=== PATIENT | female | born 1955 | race Caucasian/White ===

== ENCOUNTER 2019-11-11 06:00 | Emergency (ER) | payer OTHER, MEDICARE ==
[~2019-11-11] VITALS: Ht 172.7 cm; Wt 90.7 kg
[2019-11-11 06:05] VITALS: BP 155/83
--- NOTE | 2019-11-11 06:15 | NUR ---
PT AMBULATED TO BED 11 WITH ASSISTIVE DEVICE (CANE)
--- NOTE | 2019-11-11 06:20 | NUR ---
64 year old female presents to the emergency department with c/o cat bite on LLE x 2 hours. states she was walking her cat in the backyard when a stray cat popped out and bit her LLE. no other s/sx reported by patient.
[2019-11-11] MEDS ORDERED: LIDOCAINE/EPI 1% 1:100000 20 ML VIAL INJ ONE (06:25)
[2019-11-11] MEDS ORDERED: BACITRACIN OINT 500 UNITS/GM PKT TP ONE (06:25)
--- NOTE | 2019-11-11 06:55 | NUR ---
Dr. Mason at bedside performing procedure.
--- NOTE | 2019-11-11 07:24 | NUR ---
Patient discharged with v/s stable. Written and verbal after care instructions given and explained. Patient alert, oriented and verbalized understanding of instructions. Ambulatory with steady gait. All questions addressed prior to discharge. ID band removed. Patient advised to follow up with PMD. Rx of augmentin and bacitracin given. Patient educated on indication of medication including possible reaction and side effects. Opportunity to ask questions provided and answered.
== END 2019-11-11 07:24 | disposition home or self-care (01) ==
LOC: MED 06:00
DX: S81.812A Laceration without foreign body, left lower leg, initial encounter (principal); M13.88 Other specified arthritis, other site; Z98.890 Other specified postprocedural states; W55.01XA Bitten by cat, initial encounter; Y93.89 Activity, other specified; Y92.89 Other specified places as the place of occurrence of the external cause; Y99.8 Other external cause status
CPT/HCPCS: 12004; 99283; J2001